=== PATIENT | female | born 1955 | race Caucasian/White ===

== ENCOUNTER 2023-11-25 08:07 | Outpatient (CLI) | payer MEDICARE, BC, SELFPAY ==
--- NOTE | 2023-11-25 08:15 | MR_ITS ---
[address] [address] Phone:?[phone] Fax:?[phone] Referring Physician Information: Damoen Mitchell M.D. [id number] [facility] [address] Phone:?[phone] Fax:?[phone] Patient:Isaac Pereira D.O.B:?1955 Sex:?Female Phone:?[phone] [facility] MRN:?[id number] Exam Date:?11/25/2023 EXAM: MRI of the LEFT SHOULDER, without contrast CLINICAL INFORMATION: Female, 68 years old, with left shoulder pain. INDICATION: Evaluate shoulder pain. PRIOR SURGERY: None reported. PLAIN FILMS: Shoulder radiograph dated 11/21/2023. COMPARISONS: No prior MRIs available. TECHNICAL INFORMATION: Using a 1.5T MR scanner and a localizing surface coil: coronal obliques: PD, T2, STIR sagittal obliques: PD, T2 axials: PD, T2 SEDATION: None CONTRAST: None FINDINGS: Bones: Proximal humerus: No fracture or marrow edema/pathology. No humeral Hill-Sachs or reverse Hill-Sachs lesion/impaction or contusion. Glenoid: No fracture or marrow edema/pathology. No osseous Bankart lesion. Rotator cuff and muscles/tendons: Supraspinatus: Full width, full-thickness tear of supraspinatus, tendon retraction to the mid humeral head and grade 2 muscle atrophy. Infraspinatus: Marked infraspinatus tendinopathy with a 1.0 x 1.0 cm area of full-thickness tearing of the anterior distal tendon fibers superimposed upon full-width, intermediate grade partial-thickness tearing (sagittal T2 series 8 image 6 and coronal STIR series 4 image 9). Teres minor: No tendinopathy, tear or atrophy. Subscapularis: Moderate tendinopathy of the superior distal subscapularis, without tendon tear or muscle atrophy. Deltoid: No strain or atrophy. Coracoacromial arch: Acromion morphology: The acromion has type II morphology. No discrete subacromial osseous spur or os acromiale. Acromiohumeral space: The acromiohumeral space is within normal limits. Coracohumeral space: The coracohumeral space is within normal limits. Acromioclavicular joint: Joint: Moderate AC joint arthropathy with 4 mm of inferior osteophytosis, which effaces the underlying supraspinatus. Ligaments: Coracoclavicular ligaments are intact. Bursae: Subacromial-subdeltoid: Mild-moderate subacromial-subdeltoid bursitis. Subcoracoid: No convincing subcoracoid bursal thickening/bursitis. Biceps tendon: The long head of the biceps tendon is present within the bicipital groove. Moderate tendinopathy and fraying of the intra-articular biceps long head tendon, without split/tear. Glenohumeral joint: Effusion/cyst: Small glenohumeral joint effusion. Articular cartilage: Humeral head: Mild thinning of the humeral head articular cartilage, with minimal inferomedial marginal osteophytosis. Glenoid: No osteochondral abnormalities. Loose bodies: No discrete intra-articular body within the joint. Labrum:?Circumferential degeneration and fraying of the labrum, which is of doubtful clinical significance. Inferior glenohumeral ligament/axillary pouch:?Intact. The axillary pouch is normal in thickness and signal. No evidence of adhesive capsulitis or capsular injury. IMPRESSION: 1. Full width, full-thickness tear of supraspinatus, tendon retraction to the mid humeral head and grade 2 muscle atrophy. 2. Approximately 1.0 x 1.0 cm area of full-thickness tearing of the anterior distal infraspinatus tendon superimposed upon marked tendinopathy and broad- based intermediate grade partial-thickness articular surface tearing. 3. Moderate subscapularis tendinopathy, without tear. 4. Moderate tendinopathy of the intra-articular biceps long head tendon, without tear. 5. Moderate AC joint arthropathy, which effaces the underlying supraspinatus. Additionally, there is mild-moderate subacromial-subdeltoid bursitis. However, the acromiohumeral space is normal. 6. Circumferential degeneration and fraying of the labrum which is of doubtful clinical significance BC Electronically signed on 11/28/2023 7:56:00 AM by Roel Escobar M.D.
== END 2023-11-25 08:08 | disposition home or self-care (01) ==
LOC: MRI 08:10
PROVIDERS: PCP Family Medicine; Visit Provider Orthopaedic Surgery
DX: M25.512 Pain in left shoulder (principal); M75.102 Unspecified rotator cuff tear or rupture of left shoulder, not specified as traumatic; S46.912A Strain of unspecified muscle, fascia and tendon at shoulder and upper arm level, left arm, initial encounter; M75.52 Bursitis of left shoulder
CPT/HCPCS: 73221

== ENCOUNTER 2024-01-26 06:55 | Day surgery (SDC) | payer MEDICARE, BC, SELFPAY ==
[2024-01-26] VITALS (16 sets, daily range): BP systolic 139–165; BP diastolic 64–85; PULSE 59–83; RESP 16; TEMP 36.1–36.6; O2SAT 92–100; BMI 39.7
--- OUTSIDE RECORDS SUMMARY | 2024-01-26 07:00 | XMS_ITS | Clinical Summary ---
Author Name Unknown Organization [facility] Address [place], [place] [address] Care Team Providers Care Cna Per Diem Name Role Phone Jb Recio MD Primary Care Provider Allergies Active Allergy Reactions Criticality Noted Date Comments Sulfamethoxazole-Trimet hopri Hives Low 01/29/2015 Abdominal area Benzocaine-Menthol Diarrhea Unknown 11/23/2016 Blisters in mouth & diarrhea Meperidine Nausea And Vomiting,GI Upset 04/27/2006 Erythromycin Diarrhea,Nausea And Vomiting Low 04/27/2006 Atorvastatin Nausea Only 04/16/2019 Medications Medication Sig Dispensed Refills Start Date End Date Status aspirin enteric coated 81 mg tablet Take 1 tablet by mouth once daily with a meal. 0 1 Active cholecalciferol (VITAMIN D-3) 2,000 unit capsuleIndications :Routine general medical examination at a health care facility Take 1 capsule by mouth once daily. 1 capsule 0 6 Active loratadine (CLARITIN) 10 mg tablet Take 10 mg by mouth once daily with evening meal. Active acetaminophen (TYLENOL EXTRA STRGTH) 500 mg tabletIndications: Acute post-operative pain Take 2 tablets by mouth every 6 hours if needed. Max acetaminophen dose: 4000mg in 24 hrs. 50 tablet 0 Active cyanocobalamin (VITAMIN B12) 500 mcg tablet Take 5 Tablets (2,500 mcg) by mouth once daily. 5 Tablet 2 Active estradioL (ESTRACE) 0.01% (0.1 mg/g) vaginal creamIndications:A trophic vaginitis Insert 1 g into the vagina every Tuesday, Tuesday and Tuesday. 42.5 g 4 3 Active atenoloL (TENORMIN) 50 mg tabletIndications: HTN (hypertension) Take 1 Tablet (50 mg) by mouth once daily. 90 Tablet 3 3 Active hydroCHLOROthiazid e (HCTZ) 25 mg tabletIndications: HTN (hypertension) Take 1 Tablet (25 mg) by mouth once daily. 90 Tablet 3 3 Active losartan (COZAAR) 50 mg tabletIndications: HTN (hypertension) Take 1 Tablet (50 mg) by mouth once daily. 90 Tablet 3 3 Active potassium chloride (MICRO-K) 10 mEq Controlled-release capsuleIndications :HTN (hypertension) Take 1 Capsule (10 mEq) by mouth two times daily with meals. 180 Capsule 3 3 Active rosuvastatin (CRESTOR) 20 mg tabletIndications: HTN (hypertension) Take 1 Tablet (20 mg) by mouth at bedtime. 90 Tablet 3 3 Active predniSONE (DELTASONE) 20 mg tabletIndications: Cervical radiculopathy Take 40 mg (2 tab) for 4 days, then 30 mg (1.5 tab) for 3 days, then 20 mg (1 tab) for 2 days then 10 mg (0.5 tab) for 1 day 15 Tablet 3 01/09/20 24 Discontinu ed(*Patien t states no longer taking) Active Problems Problem Noted Date Diagnosed Date Pneumonia 12/24/2022 Hypoxia 12/24/2022 Confusion 12/24/2022 Acute encephalopathy 12/24/2022 Depression, recurrent 07/21/2022 H/O lumbosacral spine surgery 04/11/2019 Sacroiliac joint dysfunction of right side 04/11 Severe back pain 04/11/2019 Muscle spasm 04/11/2019 Diastasis of rectus abdominis 03/19/2019 Colon polyps 01/05/2017 ACP (advance care planning) 12/31/2011 Overview: Patient has identified Health Care Agent(s): No Add Health Care Agents: No Patient has Advance Care Plan Documents (Health Care Directive, POLST): No, Health Care Packet given to patient. Patient has identified Specific Treatment Preferences: No Specific limits to treatment preferences NOT identified: ASSUME FULL TREATMENT. Shelly Orellana RN .................... 12/31/2011 10:13 AM C4-7 Cervical Spinal Fusion 200503/26/2009 Spinal stenosis, lumbar [place] on, without neurogenic claudication 03/26/2009 Degeneration of lumbar or lumbosacral interverte bral disc 03/26/2009 Depressive disorder, not elsewhere classified Myalgia and myositis, unspecified 08/13/2006 Unspecified essential hypertension Other and unspecified hyperlipidemia Resolved Problems Problem Noted Date Diagnosed Date Resolved Date Medical Home 12/06/2011 03/10/2012 Encounters Date Type Department Care Team Description 01/09/2024 12:20 PM CDT Preop Visit [address] [phone] Jb Recio MD Preoperative Exam (Surgery on 01/26/24 [facility] ) 01/09/2024 Travel 12/29/2023 Orders Only [address] [phone] Jb Recio MD Procedure (Order only) 11/25/2023 Orders Only [facility] Scanner 1 scan: (1-Ord) [facility], MRI LT SHOULDER WITHOUT CONTRAST, 11/25/2023 11/14/[address] [phone] Jb Recio MD Follow Up (Ortho consult?) from Last 3 Months Immunizations Name Administration Dates Next Due COVID-19 vaccine (MyPronostic NTAtmail 30mcg/0.3mL) NABEEL COLVIN 09/09/2021,12/21/2020,11/30/2020 Hepatitis A (Adult) 05/13/2010,04/24/2007 Influenza A (H1N1), Inactiva verónica (Age >=3 Years) 10/07/2009 Influenza Virus, Unspecified 06/19/2015 Influenza, High-dose Inactivated 07/05/2020 Influenza, IIV3 (Age >=3 years) 07/04/20 14,06/28/2013,06/29/2012,2010,07/09/2010 Influenza, IIV4 07/10/2018,07/07/2017,06/26/2016 Influenza, Inactivated AIIV4 (Age 65+ Years) Preserv Free 08/07/2022,06/18/2021,07/05/2020 Pneumococcal Conj 20-valent (Prevnar 20) 07/19/2022 Pneumococcal conj 13-Valent (Prevnar 13) 06/18/2021 Td (Age >=7 Years) 03/27/2004 Tdap 06/29/2012 Zoster (Shingrix-RZV, recombinant) 05/19/2018, Zoster (Zostavax-ZVL, live) 10/01/2014 Family History Medical History Relation Name Comments Hypertension Brother Psychiatric illness Daughter depressi on Diabetes Father Stroke Father Diabetes Maternal Aunt Heart Disease Maternal Uncle 1 Cancer-colon Maternal Uncle 2 Cancer Mother lung Hypertension Mother Psychiatric illness Mother depressi n Stroke Paternal Grandfather Other Sister 1 migraines Hypertension Sister 2 Cancer-breast No Family History Relation Name Status Comments Brother Daughter Father Maternal Aunt Maternal Uncle 1 Maternal Uncle 2 Mother Paternal Grandfather Sister 1 Sister 2 Social History Tobacco Use Types Packs/Day Years Used Date Smoking Tobacco: Never Smokeless Tobacco: Never Tobacco Cessation:Counseling Given: Yes Alcohol Use Standard Drinks/Week Comments Yes 0 (1 standard drink = 0.6 oz pur e alcohol) rarely PHQ-2 Answer Date Recorded PHQ-2 TOTAL SCORE 1 08/09/2023 Social Connections Answer Date Recorded Frequency of Communication with Friends and Fami ly Not on file 12/27/2023 Financial Resource Strain Answer Date R ecorded Difficulty of Paying Living Expenses 3 03/16/2022 Difficulty of Paying Living Expenses Not on file 03/16/2022 Food Insecurity Answer Date Recorded Worried About Running Out of Food in the Last Ye ar 1 03/16/2022 Transportation Needs Answer Date Record ed Lack of Transportation (Medical) 1 03/16/2022 Housing Stability Answer Date Recorded Unable to Pay for Housing in the Last Year 1 03/16/2022 Sex and Gender Information Value Date Recorded Sex Assigned at Female 11/27/2020 5:03 PM OPERATIONS AND MAINTENANCE MANAGER Gender Identity Female 11/27/2020 5:03 PM OPERATIONS AND MAINTENANCE MANAGER Sexual Orientation Straight 11/27/2020 5: 03 PM OPERATIONS AND MAINTENANCE MANAGER Obstetrics History Para Term AB IAB SAB Ectopic Multiple Livin g Live Births 4 3 3 1 1 3 Date Outcome GA Total Labor Labor/2nd/3rd Weight Sex Delivery Anes PTL Gertrude A1 A5 Name Cl in Term Term Term Ectopic Last Filed Vital Signs Vital Sign Reading Time Taken Comments Blood Pressure 104/60 01/09/2024 12:45 PM CDT Pulse 61 01/09/2024 12:45 PM CDT Temperature 36.6 ??C (97.9 ??F) 01/09/2024 12:45 PM C DT Respiratory Rate 20 01/09/2024 12:45 PM CDT Oxygen Saturation 96% 01/09/2024 12:45 PM CDT Inhaled Oxygen Concentration - - Weight 108.4 kg (239 lb) 01/09/2024 12:45 PM CDT Height 165.1 cm (5' 5) 01/09/2024 12:45 PM CDT Body Mass Index 39.77 01/09/2024 12:45 PM CDT Plan of Treatment Health Maintenance Due Date Last Done Comments Tetanus booster 06/29/2022 06/29/2012, 03/27/2004 COVID-19 vaccine series ( season) 2023 08/07/2022, 09/09/2021, 12/21/2020, Additional history exists Colonoscopy through age 75 12/23/202312/22, 03/16/2012, 03/16/2012 Influenza for age 65+ 05/27/2024 08/07/2022 , 06/18/2021, 07/05/2020, Additional history exists Depression screening for age 12+ 08/09/2024 08/09/2023, 07/19/2022, 03/16/2022, Additional history exists Medicare Wellness for age 65+ 08/09/2024, 07/19/2022, 06/18/2021 Mammogram for age 45-75 09/05/2024 09/05/20, 08/26/2022, 07/17/2021, Additional history exists BMI (ht and wt on same day) for age 18+ 01/08/2025 01/09/2024, 08/09/2023, 04/07/2023, Additional history exists Lipids for age 45-75 08/04/2028 08/04/2023, 07/14/2022, 06/12/2021, Additional history exists Tdap Completed 06/29/2012 Hepatitis C screening for ag e 18-79 Completed 09/15/2013 Zoster (shingles) series for age 50+ Completed 05/19/2018, 01/17/2018, 10/01/2014 DEXA/DXA scan for age 65+ Completed 06/24/2021 Pneumococcal series for age 65+ Completed 2, 06/18/2021 Medical Devices Implanted Type Area Toll Collector Device Identifier Shelf Expiration Date Model / Serial / Lot [id number] ock [id number] [facility] - Venicetone [[id number]] Implanted:Qty: 1 on 04/29/2006 at [facility] Explanted:at [facility] (Quantity not on file) Bone Implants Spine [employer] 03/21/2009 [id number]# / [id number] / Screw 870-210 - [id number] Implanted:Qty: 2 on 04/29/2006 at [facility] Spine Implants Spine SOFAMOR DANEK 870-210# / / Screw Spinal Canclls 3.3dew05ts Titnm Murdock - [id number] Implanted:Qty: 2 on 04/29/2006 at [facility] Spine Implants Spine SOFAMOR DANEK 870-212# / / Screw Canclls 4.0x10 - [id number] Implanted:Qty: 3 on 04/29/2006 at [facility] Spine Implants Spine SOFAMOR DANEK 870-310# / / Screw Canclls 4.0x12 - [id number] Implanted:Qty: 2 on 04/29/2006 at [facility] Spine Implants Spine SOFAMOR DANEK 870-312# / / [id number] ock Loyd [id number] [[id number]] [[id number] ] Implanted:Qty: 1 on 04/29/2006 at [facility] Explanted:at [facility] (Quantity not on file) Spine Medtronic 12/22/[id number]# / [id number] / [id number] 073putty Bone Dbx 1cc [id number] [[id number]] Implanted:Qty: 1 on 04/29/2006 at [facility] Explanted:at [facility] (Quantity not on file) Musculoskeletal Transplant 11/22/2007 [id number]# / [id number] / [id number] ock Loyd [id number] 1 [[id number]] Implanted:Qty: 1 on 04/29/2006 at [facility] Explanted:at [facility] (Quantity not on file) Spine Medtronic 11/25/2008 132716# / [id number] / Plate 8hole 13mm Implanted:Qty: 1 on 04/29/2006 at [facility] Spine Medtronic [id number] / / [id number] Canclls Crushed 30cc [[id number]] Implanted:Qty: 1 on 05/16/2009 at [facility] Explanted:at [facility] (Quantity not on file) Spine Musculoskeletal Transplant [id number]# / [id number] / [id number] 1bone Canclls Crushed 30cc [[id number]] Implanted:Qty: 1 on 05/16/2009 at [facility] Explanted:at [facility] (Quantity not on file) Spine Allosource 11/15/2013 [id number]# / [id number] 1 / Screw Legacy 7.5x50 Titnm M/A [id number] - [id number] Implanted:Qty: 4 on 05/16/2009 at [facility] Bilateral: Lumbar Vertebrae SOFAMOR DANEK [id number]# / / Christianne 5.5x40 Prebent Cdh - [id number] Implanted:Qty: 2 on 05/16/2009 at [facility] Bilateral: Lumbar Vertebrae SOFAMOR DANEK [id number]# / / Screw Set Non Break-Off Hex Titnm - [id number] Implanted:Qty: 4 on 05/16/2009 at [facility] Bilateral: Lumbar Vertebrae SOFAMOR DANEK [id number]# / / [id number] 6bone 1-4mm 30cc Medtronic Chips Canclls Freeze Dried Implanted:Qty: 1 on 05/13/2020 by Dane Kimble MD at [facility] Explanted:at [facility] (Quantity not on file) N/A: Spine Medtronic Spine/Ortho 10/30/2024 [id number]# / [id number] / [id number] 1bone Matrix 3cc Tam Dbf Putty Dbm Implanted:Qty: 1 on 05/13/2020 by Dane Kimble MD at [facility] Explanted:at [facility] (Quantity not on file) N/A: Spine Medtronic Spine/Ortho 01/14/2022 [id number]# / [id number] 1 / Spacer Lmbr 9x22mm Capstone Tlif Peek - [id number] Implanted:Qty: 1 on 05/13/2020 by Dane Kimble MD at [facility] N/A: Spine Medtronic Spine/Ortho 09/12/2026 [id number]# / / [id number] Set Screw Lmbr Ant 5.5mm Solera Break Off - [id number] Implanted:Qty: 4 on 05/13/2020 by Dane Kimble MD at [facility] N/A: Spine Medtronic Spine/Ortho [id number]# / / Christianne Lmbr 45x5.5mm Solera 5.5/6cvd Titnm - [id number] Implanted:Qty: 2 on 05/13/2020 by Dane Kimble MD at [facility] N/A: Spine Medtronic Spine/Ortho [id number]# / / Screw Lmbr Post 7.5x55mm Solera 5.5/6 Va Cocr - [id number] Implanted:Qty: 1 on 05/13/2020 by Dane Kimble MD at [facility] N/A: Spine Medtronic Spine/Ortho [id number]# / / Screw Lmbr Post 7.5x50mm Solera 5.5/6 Va Cocr - [id number] Implanted:Qty: 3 on 05/13/2020 by Dane Kimble MD at [facility] N/A: Spine Medtronic Spine/Ortho [id number] 50# / / Explanted Type Area Toll Collector Device Identifier Shelf Expiration Date Model / Serial / Lot Explant - Medtronic Explanted:Qty: 1 on 05/13/2020 at [facility] N/A: Spine Description:SET SCREW X4 CHRISTIANNE X2 SCREW X4 Procedures Procedure Name Priority Date/Time Associated Diagnosis Comments SCAN-MRI INTERPRETATION 11/25/2023 12:00 AM OPERATIONS AND MAINTENANCE MANAGER XR MAMMO HARRY BILAT SCREEN Routine 09/05/2023 10:55 AM OPERATIONS AND MAINTENANCE MANAGER Visit for screening mammogram LIPID PANEL W REFLEX MEASURED LDL Routine 08/04/2023 10:11 AM OPERATIONS AND MAINTENANCE MANAGER Hyperlipidemia, unspecified hyperlipidemia type XR DXA BONE DENSITY 2 SITES AXIAL Routine 06/24/2021 1:45 PM CDT Menopause COLONOSCOPY 12/22/2018 7:27 AM CDT ANTI HCV Routine 09/15/2013 10:45 AM OPERATIONS AND MAINTENANCE MANAGER Need for hepatitis C screening test from Last 3 Months or Most Recently Relevant to Health Maintenance Results * SCAN-MRI INTERPRETATION (11/25/2023 12:00 AM OPERATIONS AND MAINTENANCE MANAGER) Anatomical Region Laterality Modality Other Scanner OTHER * XR MAMMO HARRY BILAT SCREEN (09/05/2023 10:55 AM OPERATIONS AND MAINTENANCE MANAGER) Anatomical Region Laterality Modality BREASTS, Breast Left, Breast Right Bilateral Mammography Impressions 09/05/2023 11:04 AM OPERATIONS AND MAINTENANCE MANAGER ??There is no radiographic evidence for malignancy. ??Recommend annual mammograms. MAMMOGRAM ASSESSMENT: ??ACR 1 Negative PATIENTS: You will also receive a letter with your examination results in an easy to read format. ??If you have questions about your results, please contact your referring provider. Narrative 09/05/2023 11:04 AM OPERATIONS AND MAINTENANCE MANAGER For Patients: As a result of the Century Cures Act, medical imaging exams and procedure reports are released immediately into your electronic medical record. You may view this report before your referring provider. If you have questions, please contact your health care provider. XR MAMMO HARRY BILAT SCREEN [[id number]] CLINICAL HISTORY: ??This is an asymptomatic 68 y.o. patient. INDICATION FOR EXAM: Mammogram Screening. TECHNIQUE: CC & MLO views were obtained. ??This study was evaluated with the assistance of Computer-Aided Detection. Breast Tomosynthesis was used in interpretation. COMPARISON FILM: Yes 08/26/22 ? FINDINGS: ??The breasts are heterogeneously dense, which may obscure small masses. There are no dominant masses, suspicious micro calcifications or areas of architectural distortion. Jb Recio MD MAMMO * LIPID PANEL W REFLEX MEASURED LDL (08/04/2023 10:11 AM OPERATIONS AND MAINTENANCE MANAGER) CHOLESTEROL,TOTAL 125 100 - 199 mg/dL 08/04/2023 12:11 PM [facility] Comment: Cholesterol, Total Reference Ranges Desirable <200 mg/dL Borderline 200-239 mg/dL High >=240 mg/dL TRIGLYCERIDES 115 <150 mg/dL 08/04/2023 12:11 PM [facility] HDL CHOLESTEROL 53 >40 mg/dL 12:11 PM [facility] NON-HDL CHOLESTEROL 72 <145 mg/dl 08/04/2023 12:11 PM [facility] CHOL/HDL RATIO 2.36 <4.50 08/04/2023 12:11 PM [facility] LDL CHOLESTEROL 49 <=130 mg/dL 08/04/2023 12:11 PM [facility] VLDL CHOLESTEROL 23 <=30 mg/dL 08/04/2023 12:11 PM [facility] PROVIDER ORDERED STATUS RANDOM 08/04/2023 12:11 PM [facility] Blood BLOOD SPECIMEN / Unknown Venipuncture / Unknown 08/04/2023 10:11 AM OPERATIONS AND MAINTENANCE MANAGER 08/04/2023 10:11 AM OPERATIONS AND MAINTENANCE MANAGER Jb Recio MD CHEMISTRY [facility] [address] [place] [id number] * XR DXA BONE DENSITY 2 SITES AXIAL [44696.1] (06/24/2021 1:45 PM CDT) Anatomical Region Laterality Modality Spine, HIPS, HIPL, HIPR Computed Radiography Impressions 06/25/2021 12:04 PM CDT Normal bone density. ?? Lumbar spine not analyzed due to history of spine surgery. RECOMMENDATIONS: The National Osteoporosis Foundation recommends pharmacologic treatment for patients with T-scores of -2.5 or less, patients with prior history of fragility fractures, or patients with 10-year probability of greater than 3% at hips or greater than 20% of suffering major osteoporotic fractures. Recommend continued optimization of calcium and vitamin D intake through dietary means and/or supplementation and regular exercise. Repeat scan recommended in 7-10 years. Narrative 06/25/2021 12:04 PM CDT For Patients: Results are automatically released to your [employer] account once available, in compliance with federal regulations. This means that you may see your results before your provider has had a chance to review them. Please allow 2-3 business days for your provider to comment on the results. XR DXA Bone Mineral Density (BMD) EXAM LOCATION: [address] [phone] PATIENT NAME: Marietta Pereira DATE OF : 1955 EXAM DATE: 06/24/2021 REQUESTING PROVIDER: Jb Recio MD GENDER AT : female HEIGHT: 5' 6 (06/18/2021) WEIGHT: ??236 lb (06/18/2021) MENOPAUSAL STATUS: Postmenopausal RACE/ETHNICITY: White RISK FACTORS: White Race CURRENT MEDICATION FOR BONE LOSS: NONE INDICATION: Menopause COMPARISON DATE(S): None DXA scans are compared to prior studies for a patient only when the two (or more) studies were performed on the same scanner. It is not possible to compare data generated on one scanner to data from another because there are not standards in DXA equipment. This applies even if the two scanners are made by the same dust mixer. PROCEDURE: Dual-energy x-ray absorptiometry performed with routine technique. Reporting is completed in the form of a T-score. The T-score represents the standard deviation from peak bone mass based on young healthy adult. A Z-score is used for diagnosis in premenopausal women, and for men under the age of 50. FINDINGS: RESULTS FEMUR Left femoral neck BMD: 1.020 g/cm2 T-Score: - 0.1 Z-Score: + 0.7 Change from prior: ??None Right femoral neck BMD: 0.964 g/cm2 T-Score: - 0.5 Z-Score: + 0.3 Change from prior: ??None Left hip BMD: 1.023 g/cm2 T-Score: + 0.1 Z-Score: + 0.6 Change from prior: ??None Right hip BMD: 1.002 g/cm2 T-Score: + 0.0 Z-Score: + 0.4 Change from prior: ??None RESULT FOREARM Right Forearm distal radius BMD: 0.868 g/cm2 T-Score: - 0.2 Z-Score: + 1.3 Change from prior: ??None WHO criteria: Normal: T-score at or above -1 SD Osteopenia: T-score between -1.1 and -2.4 SD Osteoporosis: T-score at or below -2.5 SD FRAX RISK CALCULATION (USED FOR OSTEOPENIA ONLY): 10-year probability of major osteoporotic fracture: 11.4%. 10-year probability of hip fracture: 0.6%. Jb Recio MD DEXA * COLONOSCOPY (12/22/2018 7:27 AM CDT) 12/22/2018 7:27 AM CDT Narrative Transcriptions Rand Blunt, - 12/22/2018 8:53 AM CDT Patient Name: Marietta Pereira Procedure Date: 12/22/2018 Gender: Female Date of : 1955 Admit Type: Ambulatory Procedure: Colonoscopy Proceduralist: Rand Blunt MD [facility] Indications/Pre-Op Diagnosis: High risk colon cancer surveillance:Personal history of colonic polyps, Family history of colonic polyps in a first-degree relative,Last colonoscopy: 2011 Medications: Propofol per Anesthesia Procedure Description: The patient had risks, benefits and alternatives explained to andgave informed consent. The patient had a stable cardiopulmonary status and judged an adequate candidate for conscious sedation. The colonoscope was passed through the anus and advanced to thececum, identified by appendiceal orifice and ileocecal valve. Thecolonoscopy was performed without difficulty. The patient tolerated the procedure well. The quality of the bowel preparation was good. The ileocecal valve, appendiceal orifice, and rectum were photographed. Complications: No immediate complications. Estimated Blood Loss & Specimen: Estimated blood loss: none. Specimen collected - Yes and sent to Laboratory Findings: A 4 mm polyp was found in the ascending colon. The polyp was semi-pedunculated. The polyp was removed with a hot snare. Resectionand retrieval were complete. Verification of patient identification forthe specimen was done. Estimated blood loss was minimal. A 6 mm polyp was found in the sigmoid colon. The polyp was sessile.The polyp was removed with a hot snare. Resection and retrieval were complete. Verification of patient identification for the specimen was done. Estimated blood loss was minimal. Non-bleeding internal hemorrhoids were found during retroflexion and during perianal exam. The hemorrhoids were Grade IV (internal hemorrhoids that prolapse and cannot be reduced manually). Impressions/Post-Op Diagnosis: - One 4 mm polyp in the ascending colon, removed with a hot snare. Resected and retrieved. - One 6 mm polyp in the sigmoid colon, removed with a hot snare. Resected and retrieved. - Non-bleeding internal hemorrhoids. Recommendation: - Discharge patient to home. - Patient has a contact number available for emergencies. The signsand symptoms of potential delayed complications were discussed with the patient. Return to normal activities tomorrow. Written discharge instructions were provided to the patient. - High fiber diet. - Await pathology results. - Repeat colonoscopy in 5 years for surveillance. Moderate Sedation: Moderate (conscious) sedation was personally administered by an anesthesia professional. The following parameters were monitored:oxygen saturation, heart rate, blood pressure, and response to care. Rand Blunt MD 12/22/2018 8:53:01 AM This report has been signed electronically. Note Initiated On: 12/22/2018 7:27 AM Rand Blunt DO PROCEDURE ORD * ANTI HCV [[id number]] (09/15/2013 10:45 AM OPERATIONS AND MAINTENANCE MANAGER) ANTI HCV Non-reacti ve [facility] Blood specimen (specimen) BLOOD SPECIMEN / Unknown 09/15/2013 10:45 AM OPERATIONS AND MAINTENANCE MANAGER 09/17/2013 11:05 AM OPERATIONS AND MAINTENANCE MANAGER Jb Recio MD SEND OUTS [facility] INTERNAL ZIP [phone] [facility] [place] [address] from Last 3 Months or Most Recently Relevant to Health Maintenance Advance Directives Documents on File Type Date Recorded Patient Utilization Engineer Expl anation POLST 06/23/2021 9:08 AM POLST 05/28 * Full Code (Latest Code Status on File) Date Activated Date Inactivated Comments 12/24/2022 4:57 PM 12/27/2022 4:26 PM Question Answer Comments Code Status Discussion: Reviewed Preferences * Full Code Date Activated Date Inactivated Comments 05/13/2020 3:22 PM 05/16/2020 6:14 PM Question Answer Comments Code Status Discussion: Not Discussed * Full Code Date Activated Date Inactivated Comments 12/22/2018 6:40 AM 12/22/2018 11:38 AM Question Answer Comments Code Status Discussion: Discussed * Full Code Date Activated Date Inactivated Comments 05/16/2009 6:11 AM 05/20/2009 5:42 PM * Full Code Date Activated Date Inactivated Comments 04/29/2006 12:10 PM 05/02/2006 3:57 PM Care Teams Cna Per Diem Relationship Specialty Start Date End Date Jb Recio MD [address] [facility] [place] [address] PCP - General 01/14/16
[2024-01-26] MEDS: SCOPOLAMINE 1 MG/3 DAY PATCH 1 PATCH TRANSDERMA (07:27)
[2024-01-26] MEDS: SODIUM CHLORIDE 0.9 % (FLUSH) 10 ML SYRINGE IVF ×2 (07:35→10:53)
[2024-01-26] MEDS: LACTATED RINGERS 1000 ML 1,000 ML 100 ML IV ×2 (07:35→09:47)
[2024-01-26] MEDS: MIDAZOLAM HCL 1 MG/ML inj IVP (08:10)
[2024-01-26] MEDS: fentaNYL 100 MCG/2 ML inj IVP (08:10)
[2024-01-26] MEDS: EPINEPHrine 1 MG in SODIUM CHLORIDE IRRIG SOLUTION 3,000 ML 3001 MG IRRIGATION ×2 (08:26→09:29)
[2024-01-26] MEDS: CEFAZOLIN 2 GM INJ IVP (08:50)
--- NOTE | 2024-01-26 10:24 | PM.ORPRC ---
Procedure Note Date of procedure: 01/26/24 Procedure: PREOPERATIVE DIAGNOSIS: Left shoulder rotator cuff tear, AC joint arthrosis, degenerative labral tearing POSTOPERATIVE DIAGNOSIS: Left shoulder rotator cuff tear, AC joint arthrosis, degenerative labral tearing NAME OF OPERATION: Left shoulder arthroscopic subacromial decompression, distal clavicle excision, mini open rotator cuff repair, glenohumeral joint debridement SURGEON: Dameon Mitchell MD RICE DRIER OPERATOR: JOANN Wolf ANESTHESIA: Supraclavicular block plus general endotracheal ESTIMATED BLOOD LOSS: 15 mL COMPLICATIONS: None SPECIMENS: None DRAINS: None PREOPERATIVE ANTIBIOTICS: Ancef 2 grams INDICATIONS: The patient is a 68-year-old with a history of left shoulder pain secondary to the above diagnoses. Despite appropriate non operative management, they continue to have symptoms. Operative intervention was recommended. The risks, benefits and expected outcomes were discussed in detail. These included but were not limited to: Infection, bleeding, injury to blood vessel or nerve, venous thromboembolism. All questions were answered to their satisfaction. PROCEDURE: A supraclavicular block was placed by Anesthesia. General anesthesia was administered. The patient was placed in the high beach chair position. The left shoulder was prepped and draped in the usual sterile fashion. The glenohumeral joint was infiltrated with 20 mL of normal saline with epinephrine. The posterior portal was established, the arthroscope was introduced. The anterior portal was established, Diagnostic arthroscopy was performed with findings as follows: The biceps and biceps anchor are intact. The anterior, posterior and superior labrum have age-appropriate degenerative tearing. There is a cord like middle glenohumeral ligament and a sublabral foramen, consistent with a Sharon complex. Articular surfaces on the humeral head and glenoid are normal. There are no loose bodies. There is a full-thickness tear of the supraspinatus. The labrum was aggressively debrided with the shaver. The arthroscope was placed in the subacromial space, the lateral portal was established. The Arthrex [place] was used to dissect the acromion free. The CA ligament was recessed off the anterior acromion, the AC joint was exposed. The acromioplasty was performed with the bur in the posterior portal. The bur was then placed in the lateral portal and the lateral and anterior aspect of the acromion were resected. The undersurface of the distal clavicle was resected through the lateral portal. Finally, the bur was placed in the anterior portal and the remainder of the distal clavicle was resected for a total of 10 mm. An accessory anterolateral portal was placed. The subacromial/subdeltoid bursa was aggressively debrided. There is a full-thickness tear of the supraspinatus. Arthroscopic instruments were removed. The accessory anterolateral portal was extended proximally and distally, subcutaneous dissection was taken with electrocautery to the deltoid. The deltoid was divided in line with its fibers. The static retractor was placed. The subacromial/subdeltoid bursa was debrided with the Bowers scissors. The greater tuberosity was debrided to punctate bleeding bone using the arthroscopic bur. Two Arthrex BioComposite SwiveLock anchors were placed just off the articular surface. Both limbs of the FiberWire and fiber tape were passed using the scorpion. A fiber link was placed in the leading edge of the rotator cuff x2. We tied the 2 central FiberWire sutures over the rotator cuff. We then proceeded with a lateral row of SwiveLock anchors x 2 crossing the FiberTape and incorporating the FiberWire and fiber link into each lateral row anchor. The sutures on the eyelet of each lateral row anchor were passed through the leading edge of the rotator cuff both anteriorly and posteriorly resulting in a simple suture to each anchor. This provides an anatomic, watertight repair of the rotator cuff. There is no tension on the repair with the shoulder at 0? abduction. The wound was irrigated with normal saline off the pump. The deltoid was repaired with an 0 Vicryl in an interrupted [id number] fashion. Subcutaneous tissues were closed with a 3-0 Vicryl. Skin was closed with a 3-0 Monocryl in a subcuticular fashion. A dry dressing and sling were applied. Sponge and needle counts were correct x2. The patient tolerated the procedure well. There were no apparent complications. They were carefully transferred to the hospital bed and taken to the postanesthesia care unit in satisfactory condition. PLAN: The patient will be discharged to home. No active range of motion of the shoulder will be allowed for 6 weeks postoperatively. They can work on active range of motion of the elbow, wrist and fingers. They will follow up in the office next week for a wound check and an AP and transscapular Y-view of the shoulder prior to being seen.
--- NOTE | 2024-01-26 10:38 | W.ANESCHARGE ---
Anesthesia Charges Start Date/Time Anesthesia Start Date: 01/26/24 Anesthesia Start Time: 08:26 Stop Date/Time Anesthesia Stop Date: 01/26/24 Anesthesia Stop Time: 10:36
[2024-01-26] MEDS: METOCLOPRAMIDE HCL 5 MG/ML INJ 10 MG IVP (10:48)
--- NOTE | 2024-01-26 11:35 | P.NB_ITS ---
Nerve Block Nerve Block Time Seen by Provider: 08:15 Date Seen: 01/26/24 Type of block requested by surgeon for post-operative analgesia: supraclavicular Side: left Time out performed: Yes Verification of patient name: Yes Verification of date of : Yes Site marking: site marked Name of person performing procedure: Jovani Continuous monitoring Was continuous monitoring of O2 sat, B/P, anthropology instructor, recorded every 15 minutes?: Yes Procedure Checklist: sterile prep, needles and gloves Ultrasound guided. Images saved: Yes Medications given in 5ml increments after negative aspiration: Ropivicaine %: 0.5 mL: 20 Needle gauge: 22 Decadron (mg): 10 Precedex (mcg): 25 Patient tolerated procedure well: Yes Block Charges Block Charge (with Pro Fee): Brachial Plexus Use of Ultrasound Machine for Block: Yes- US Guidance/pain block
--- NOTE | 2024-01-26 11:35 | W.ANESCHARGE ---
Anesthesia Charges Start Date/Time Anesthesia Start Date: 01/26/24 Anesthesia Start Time: 08:26 Stop Date/Time Anesthesia Stop Date: 01/26/24 Anesthesia Stop Time: 10:36
--- NOTE | 2024-01-26 11:49 | SUR.PHASEII ---
Patient complaining of heavy feeling on chest. Dr. Hahn updated; 12-lead EKG obtained.
== END 2024-01-26 13:22 | disposition home or self-care (01) ==
PROVIDERS: PCP Family Medicine; Visit Provider Orthopaedic Surgery
PROC: (CPT 23412; principal; 2024-01-26 08:45)
DX: M75.102 Unspecified rotator cuff tear or rupture of left shoulder, not specified as traumatic (principal); M19.012 Primary osteoarthritis, left shoulder; S43.432A Superior glenoid labrum lesion of left shoulder, initial encounter; G89.18 Other acute postprocedural pain
CPT/HCPCS: 29826; 29824; 29822; 23412; 01630; 64415; 76942; A9270; C1713; J0171; J0330; J0690; J1100; J2250; J2405; J2704; J2710; J2765; J2795; J3010; J7120; L3670